=== PATIENT | male | born 1995 | race Caucasian/White ===

== ENCOUNTER 2018-10-19 20:41 | Emergency (ER) | payer MEDICAID ==
[~2018-10-19] VITALS: Ht 172.7 cm; Wt 68.2 kg
[~2018-10-19 20:41] MED LIST: ACET-3068 PO; CYCL-394 PO; IBUP-1984 PO; NO HOME MEDS; PANT-47 PO
[2018-10-19] MEDS ORDERED: TETanus/Pertussis (Acell)/Diphther VAC/PF (Tdap-Adult) 0.5ml syringe IM ONE (20:50)
[2018-10-19] MEDS ORDERED: LIDOcaine 1% w/epiNEPHrine 1:200,000 30ml vial IM ONE (20:50)
[2018-10-19] MEDS ORDERED: LORazepam 1 MG tablet PO ONE ×2 (20:50→23:45)
[2018-10-19 21:08] LABS: BASOPHILS % (AUTO) 0.2 % (0-1); EOSINOPHILS % (AUTO) 0.4 % (0-6); HEMATOCRIT 40.1 % (42.0-52.0); HEMOGLOBIN 13.8 g/dl (14.0-17.9); LYMPHOCYTES # (AUTO) 0.9 X10'3 (1.1-4.8); LYMPHOCYTES % (AUTO) 11.7 % (21-51); MEAN CORPUSCULAR HEMOGLOBIN 32.9 PG (27.0-31.0); MEAN CORPUSCULAR HGB CONC 34.5 g/dL (33.0-36.5); MEAN CORPUSCULAR VOLUME 95.5 FL (78-98); MONOCYTES # (AUTO) 0.6 X10'3 (0-0.9); MONOCYTES % (AUTO) 7.8 % (2-12); NEUTROPHILS # (AUTO) 6.4 X10'3 (1.8-7.7); NEUTROPHILS % (AUTO) 79.9 % (42-75); PLATELET COUNT 232 X10'3 (140-440); RED CELL DISTRIBUTION WIDTH 12.7 % (11.5-14.5)
[2018-10-19 21:22] LABS: ALANINE AMINOTRANSFERASE 30 U/L (12-78); ALBUMIN 4.3 G/DL (3.4-5.0); ALBUMIN/GLOBULIN RATIO 1.3 (1.1-1.5); ALKALINE PHOSPHATASE 90 IU/L (46-116); ANION GAP 8 (8-16); ASPARTATE AMINO TRANSFERASE 17 U/L (10-37); BILIRUBIN,TOTAL 0.5 MG/DL (0.1-1.0); BLOOD UREA NITROGEN 20 MG/DL (7-18); CALCIUM 9.5 MG/DL (8.5-10.1); CHLORIDE 105 MMOL/L (99-107); CREATININE 1.11 MG/DL (0.60-1.10); GLUCOSE 146 MG/DL (70-104); POTASSIUM 3.2 MMOL/L (3.5-5.1); SODIUM 145 MMOL/L (135-145); TOTAL CARBON DIOXIDE 32.1 MMOL/L (24-32); TOTAL PROTEIN 7.7 G/DL (6.4-8.2); eGFR 81 ML/MIN
[2018-10-19 21:30] LABS: ETHANOL < 0.010 GM/DL (0.0-0.010)
[2018-10-19] MEDS ORDERED: bacitracin 15gm ointment TP ONE (21:30)
--- NOTE | 2018-10-19 22:02 | NUR ---
PT MOTHER CALLED DARYL TOSCANO [phone]. MOM SPOKE TO PT. PT REPEATEDLY STATES, PLEASE MOM TAKE ME BACK, I WANT HER BACK, I REALLY WANT HER BACK. IM SORRY ILL CHANGED MY WAYS. ILL STOP DURING EVERYTHING. MOM IS ON HER WAY TO THE HOSPITAL.
--- NOTE | 2018-10-19 23:25 | NUR ---
pt praying at bedside, please lord help me get my life together.
--- NOTE | 2018-10-19 23:41 | NUR ---
PT ANXIOUS AND PACING IN ROOM. REPORTING HE WANTS TO CALL HIS MOM. PT JUST GOT OFF THE PHONE WHIT HER WITHIN THE HR. SHE IS REPORTEDLY WORKING ON GETTING A RIDE HERE TO COME VISIT.
--- NOTE | 2018-10-20 00:08 | NUR ---
maurilio rodriguez updated that pt restless in his room and pacing. he will order another tab of ativan
[2018-10-20] MEDS ORDERED: diphenhydrAMINE 25mg capsule PO ONE (00:10)
[2018-10-20 00:14] LABS: CLARITY,URINE CLEAR (Clear); COLOR,URINE YELLOW (Yellow); GLUCOSE, URINE NEGATIVE (Neg); KETONES,URINE 15 mg/dl (Neg); LEUKOCYTE ESTERASE ,URINE NEGATIVE (Neg); NITRITES, URINE NEGATIVE (Neg); OCCULT BLOOD,URINE NEGATIVE (Neg); PROTEIN,URINE TRACE mg/dl (Neg); UROBILINOGEN,URINE 0.2 E.U/dL (0.2-1.0)
[2018-10-20 00:15] LABS: UA COLLECTION TYPE CLN CATCH MIDSTREAM
[2018-10-20 00:20] LABS: BACTERIA,URINE NONE SEEN /HPF (Neg); MUCUS STRANDS NONE SEEN /LPF (Neg); RBC,URINE NONE SEEN /HPF (0-2); SQUAMOUS EPITHELIAL CELL,UR NONE SEEN /LPF (FEW); WBC,URINE NONE SEEN /HPF (0-4)
[2018-10-20] MEDS ORDERED: potassium Cl oral solution 20 MEQ/15 ML PO ONE (00:25)
[2018-10-20 00:32] LABS: URINE AMPHETAMINE SCREEN POSITIVE (Neg); URINE BARBITUATE SCREEN NEGATIVE (Neg); URINE BENZODIAZEPINES SCREEN NEGATIVE (Neg); URINE CANNABINOID SCREEN POSITIVE (Neg); URINE COCAINE SCREEN NEGATIVE (Neg); URINE METHADONE SCREEN NEGATIVE (Neg); URINE OPIATE SCREEN NEGATIVE (Neg); URINE PHENCYCLIDINE SCREEN NEGATIVE (Neg)
--- NOTE | 2018-10-20 00:46 | NUR ---
Pt given ativan and benedryl tablets and took them with no problem. Pt eating snacks. He reports he is waiting for his mother to come and get him and is under the impression that he is going home tonight with her. Pt denies any hitstory of MH and denies any current perscribed medications. States "yes" to hearing voices. Asked what he is hearing and he reports "its personal". I called Pt's mother, Cassy, and updated her that he is on a 72 hr hold. She was unaware that he could not come home tonight and reports that she is in a taxi coming to get him. I advised that she wait and come to be with him around 8 am and then she could be here for his eval with Mental Health. She is agreeable to this. We spoke with the Pt together on a phone in the room and updated him of the plan of care. He is more restless now, but continues to talk with him mother. She reports he can call her throughout the night if needed. Aniket Ashby and fuel efficient automobile designer, Brock, aware of situation. Pt to be moved to bed 15 for closer observation.
[2018-10-20] MEDS ORDERED: haloperidol lactate 5mg/ml inj IM ONE (00:50)
--- NOTE | 2018-10-20 01:14 | NUR ---
Pt given potassium 40 meq elixier for k of 3.2 and haldol 5 mg im. Pt willingly took all meds with no issue. Pt continues to repeat "so can i go home now?". Reiterated that he will be seen in the morning by Mental Health for further plan of care. Pt moved to bed 15 close to dry pan charger. Pt sitting up at edge of bed and requests light to be on and declines a blanket
--- NOTE | 2018-10-20 02:24 | NUR ---
pt sleeping, lying on his right side with blankets covering to his chest. RR 14 and unlabored. Sitter at doorway as Pt 1:1. Mother just called to check in and updated. She reports she will try to get here in the am.
--- NOTE | 2018-10-20 04:14 | NUR ---
pt remains asleep. RR 14 and unlabored. 1:1 sitter at doorway. mother just called to check in.
--- NOTE | 2018-10-20 04:55 | NUR ---
pt awakened to take vs. vss. pt back to sleep immediately after.
--- NOTE | 2018-10-20 06:15 | NUR ---
Assumed care of pt. Sleeping at this time, RR 15 non-labored.
--- NOTE | 2018-10-20 07:15 | NUR ---
Pt resting comfortably, and asleep on L side. Will continue to monitor.
--- NOTE | 2018-10-20 08:30 | NUR ---
Pt sleeping on R side. RR 14 and non labored. Will continue to monitor.
--- NOTE | 2018-10-20 09:30 | NUR ---
Pt sleeping on L side. RR 14 non-labored. No needs at this time. Will continue to monitor.
--- NOTE | 2018-10-20 10:30 | NUR ---
Mother and friend now at bedside. Updated family with pt permission. Per pt, he does not want any visitors or to speak with anyone other than his mother.
--- NOTE | 2018-10-20 12:00 | NUR ---
Mother at bedside. Pt asleep in bed, lying on his back. RR 15.
--- NOTE | 2018-10-20 13:00 | NUR ---
Mother at bedside. Pt asleep in bed, lying on his L side. RR 16.
--- NOTE | 2018-10-20 14:15 | NUR ---
Mother at bedside. Pt asleep in bed, lying on his R side. RR 14.
--- NOTE | 2018-10-20 15:12 | NUR ---
Mother at bedside. Pt asleep in bed, lying on his back. RR 15 and non labored
--- NOTE | 2018-10-20 15:50 | NUR ---
Received to overflow room 26. Oriented pt and mother to room and unit policies. Mother Promise requesting that we do not give out any information to anyone.
[2018-10-20] MEDS ORDERED: NO HOME MEDS (16:20)
[2018-10-20 17:22] VITALS: BP 109/74
== END 2018-10-20 17:25 | disposition home or self-care (01) ==
LOC: ER 20:42
DX: S61.511A Laceration without foreign body of right wrist, initial encounter (principal); F98.8 Other specified behavioral and emotional disorders with onset usually occurring in childhood and adolescence; E87.6 Hypokalemia; J45.909 Unspecified asthma, uncomplicated; K21.9 Gastro-esophageal reflux disease without esophagitis; F41.9 Anxiety disorder, unspecified; F15.90 Other stimulant use, unspecified, uncomplicated; Z98.890 Other specified postprocedural states; Z79.899 Other long term (current) drug therapy; X78.1XXA Intentional self-harm by knife, initial encounter; Y93.89 Activity, other specified; Y92.89 Other specified places as the place of occurrence of the external cause; Y99.8 Other external cause status
CPT/HCPCS: 12002; 36415; 80053; 80305; 80320; 81001; 84443; 85025; 90471; 90715; 96372; 99284; J1630; J3490; Q0163

== ENCOUNTER 2019-05-26 14:02 | Emergency (ER) | payer MEDICAID ==
[~2019-05-26] VITALS: Ht 177.8 cm; Wt 72.3 kg
[~2019-05-26 14:02] MED LIST changes: -ACET-3068 PO; -CYCL-394 PO; -IBUP-1984 PO; -PANT-47 PO
[2019-05-26 14:31] VITALS: BP 124/79
== END 2019-05-26 15:15 | disposition left against medical advice (07) ==
LOC: ER 14:03
DX: R22.0 Localized swelling, mass and lump, head (principal); Z53.21 Procedure and treatment not carried out due to patient leaving prior to being seen by health care provider

== ENCOUNTER 2021-10-15 17:51 | Emergency (ER) | payer MEDICAID ==
[~2021-10-15] VITALS: Ht 175.3 cm; Wt 70.5 kg
[2021-10-15] MEDS ORDERED: HYDROcodone/acetaminophen 10/325mg tab PO STA (17:56)
[2021-10-15] MEDS ORDERED: ketamine 50 mg/ml 10ml vial IV ONE (18:30)
[2021-10-15] MEDS ORDERED: ondansetron/PF 4mg/2ml inj IV ONE (18:30)
[2021-10-15] MEDS ORDERED: morphine 4 MG/ML inj SYRINge IV ONE (18:30)
--- NOTE | 2021-10-15 19:10 | NUR ---
XRAY AT BEDSIDE FOLLOWING CLOSED REDUCTION OF LEFT SHOULDER
[2021-10-15] MEDS ORDERED: HYDR-3972 PO (19:22)
[2021-10-15] MEDS ORDERED: HYDROcodone/acetaminophen 10/325mg tab PO ONE (19:25)
[2021-10-15 19:36] VITALS: BP 127/95
--- NOTE | 2021-10-15 19:50 | NUR ---
RN GAVE PT WATER. PT TOLERATED WATER WITH NO NAUSEA.
--- NOTE | 2021-10-15 19:57 | NUR ---
PT TOLERATED WALKING AND SITTING UP WITH NO COMPLICATIONS POST MODERATE SEDATION
== END 2021-10-15 20:02 | disposition home or self-care (01) ==
LOC: ER 17:52
DX: S43.085A Other dislocation of left shoulder joint, initial encounter (principal); J45.909 Unspecified asthma, uncomplicated; K21.9 Gastro-esophageal reflux disease without esophagitis; F41.9 Anxiety disorder, unspecified; F15.90 Other stimulant use, unspecified, uncomplicated; Z98.890 Other specified postprocedural states; Z79.899 Other long term (current) drug therapy; W18.39XA Other fall on same level, initial encounter; Y93.44 Activity, trampolining; Y92.89 Other specified places as the place of occurrence of the external cause; Y99.8 Other external cause status
CPT/HCPCS: 23650; 73030; 96374; 96375; 99152; 99285; J2270; J2405; J3490

== ENCOUNTER 2023-09-16 16:08 | Emergency (ER) | payer MEDICAID ==
[~2023-09-16] VITALS: Ht 177.8 cm; Wt 74.5 kg
[2023-09-16 16:16] VITALS: BP 132/98; PULSE 87; RESP 18; TEMP 97.8; O2SAT 98
[2023-09-16] MEDS ORDERED: ZIPR80CA2 PO (16:23)
[2023-09-16] MEDS: ziprasidone 20mg capsule PO SCH (16:45)
== END 2023-09-16 16:48 | disposition home or self-care (01) ==
LOC: ER 16:09
DX: R41.0 Disorientation, unspecified (principal); R45.851 Suicidal ideations; J45.909 Unspecified asthma, uncomplicated; K21.9 Gastro-esophageal reflux disease without esophagitis; F15.90 Other stimulant use, unspecified, uncomplicated
CPT/HCPCS: 99283

== ENCOUNTER 2025-01-27 07:31 | Emergency (ER) | payer MEDICARE, MEDICAID ==
[~2025-01-27] VITALS: Ht 177.8 cm; Wt 80.0 kg
[~2025-01-27 07:31] MED LIST changes: +ZIPR80CA2 PO
[2025-01-27 07:34] VITALS: BP 127/76; PULSE 77; RESP 16; O2SAT 99
--- NOTE | 2025-01-27 07:41 | Physician Documentation ---
History of Present Illness ~ Chief Complaint: Eye Pain Stated Complaint: EYE PAIN Time Seen by MD: 07:36 Primary Medical Doctor: Wolfgang [facility] PCP HPI This is a 29-year-old gentleman who presents for evaluation of swollen irritated area on his upper eyelid of the left eyelid he noticed this morning. No obvious trigger provocation. No trauma. No vision changes. Did not attempt to treat it. Denies any other concerns. Medication Reconciliation Allergies: Coded Allergies: No Known Allergies (Unverified , 02/05/12) Scheduled Ziprasidone Hcl (Geodon), 1 CAP PO DAILY Miscellaneous Medications Home Med List (No Home Medications), (Reported) Past Medical History Past Medical History: Asthma, GERD, Anxiety Past Surgical History: orthopedic surgeries Alcohol Use: None Drug Use: methamphetamine Lives with: Mother Lives In: Home Occupation: disabled Review of Systems ROS 10 point review of systems was performed and unless noted above in HPI is negative for acute process/complaint. Physical Exam Vital Signs: Heart Rate: 77, Respiratory Rate: 16, BP: 127/76, Pulse Oximetry: 99, Weight: 80.000 Physical Exam Physical examination: GENERAL: Awake, alert, oriented, GCS 15, no apparent distress, non-toxic appearing, answers questions, follows commands appropriately. HEENT: Atraumatic, normocephalic, pupils equal, extraocular muscles intact Active gross movements, sclerae anicteric, mucus membranes moist, no stridor. NECK: Midline, no JVD CARDIOVASCULAR: Good skin perfusion without evidence of pallor, mottling. PULMONARY: Nonlabored, symmetric chest rise, no audible wheezing, no accessory muscle use, no respiratory distress, speaking in full sentences. GASTROINTESTINAL: Not distended. NEUROLOGIC: Lucid with normal mental status. Normal facial symmetry. Moves all extremities symmetrically and with purpose. No truncal ataxia. Speech is fluid without evidence of dysarthria or aphasia, no focal deficits appreciated. EXTREMITIES: Acute deformities Skin: warm, dry PSYCHIATRIC: Normal affect, normal insight, normal concentration. Focused exam: Left upper eyelid has a small area of induration, erythema, consistent with a early stye. No purulent discharge. Anterior chamber is not shallow. No hypopyon or hyphema. No evidence of cellulitis/preseptal cellulitis. No pain with a extraocular range of motion. Progress Results/Orders Results/Orders Vital Signs 01/27/25 07:34 Pulse 77 Resp 16 B/P (MAP) 127/76 Pulse Ox 99 Medical Decision Making Findings Facility Status: ED Holds, E process The plan was discussed with the patient, who demonstrates clear understanding of the plan and is in agreement with the plan unless otherwise noted in the chart. All questions have been answered, all concerns were addressed unless otherwise documented. I was available throughout their ED stay for frequent reassessment and questions. Differential Diagnoses (considered and possible or likely): [Stye, chalazion, no evidence of traumatic injury, no evidence of preseptal cellulitis or orbital cellulitis at this time.] ??Differential Diagnoses (considered and unlikely, not requiring evaluation currently): [Unlikely glaucoma] MDM Data Please see [facility] for the following: Independent Historians and external Records Review. Historian: [Patient] Independent Historians: ?[Record review] Medication Management: [Reviewed medication list] Social History and determinants: [Reviewed] Please see the body of the note for the following: Any independent interpretations of ECG, imaging studies. All vitals signs/haemodynamics, ordered tests were independently reviewed and i nterpreted by myself. Nursing triage complaint and vitals reviewed, additional nursing notes were reviewed as available and I agree unless otherwise noted or documented in contradiction in the chart Vital Signs: Independently reviewed Labs: Independently interpreted Imaging: Independently interpreted Old Medical Records: Independently reviewed, see [facility] for relevant summary and information Pulse Oximetry: [98%] interpreted as [normal on room air] by me Additionally notably showing: [Hemodynamically stable] Tests considered but not ordered include: [Hematologic workup and imaging has been considered but does not appear to be necessary given clinical nature of diagnosis] Social Determinants of Health Impact: Patient was evaluated in [facility] [place] to healthcare due to below par ratio of patient to medical providers. [] Comorbid Conditions Impacting Present Evaluation and Care/Treatment: [None reported by the patient] Management Discussions with other Healthcare Providers: [] Treatment and Disposition Medication Management (Given or considered): [None needed]. See EMR for details Consideration for Hospitalization/Escalation/Deescalation of Care: Admission for observation has been considered, [however the patient is able to tolerate p.o., their symptoms are controlled, they are able to rely on oral medications, and their chief complaint/diagnosis can be managed on outpatient basis.] ?ED Course:?[No clinical deterioration. Patient education was conducted.] ?Shared decision making:?[Patient is hemodynamically stable for discharge home with follow with their primary care provider. [ ] Specific and cautious return precautions provided and discussed with full understanding. Any incidental findings were also discussed and follow up recommendations given. [] All questions answered. Patient/family were able to verbalize back return precautions. Patient/family agree to plan. Copies of imaging and laboratory studies were provided.] Code status:?FULL Please see the full Electronic Medical Record for full details of nursing documentation, medications list, other records of complete past medical history and conditions, vital signs, laboratory studies, and any radiologic study interpretations by radiologists. Portions of this note were completed using [email or web address] dictation software and as a result there may exist minor errors in spelling. I have reviewed elements of past family and social history and agree as included in note. Departure Disposition: 01 HOME / SELF CARE / HOMELESS Impression: Primary Impression: Stye Condition: Stable Discharge Instructions: Sty Referrals: NO PRIMARY CARE PROVIDER (PCP) Education Educated: Patient Educated regarding: diagnosis, treatment, prognosis, need for follow up Signature Scribe Signature: No scribe Attestation: This note accurately reflects clinical decisions, work performed by myself, Parmjit Harper, PARMJIT ZAVALETA DO Jan 27, 2025 07:41
== END 2025-01-27 07:46 | disposition home or self-care (01) ==
LOC: ER 07:32
DX: H00.014 Hordeolum externum left upper eyelid (principal); J45.909 Unspecified asthma, uncomplicated; F15.90 Other stimulant use, unspecified, uncomplicated
CPT/HCPCS: 99282

== ENCOUNTER 2025-04-18 07:52 | Emergency (ER) | payer MEDICARE, MEDICAID ==
[~2025-04-18] VITALS: Ht 180.3 cm; Wt 83.8 kg
[2025-04-18 07:55] VITALS: TEMP 97.5
[2025-04-18] MEDS ORDERED: ALBU8HFA INH (09:02)
--- NOTE | 2025-04-18 09:02 | Physician Documentation ---
History of Present Illness ~ Chief Complaint: Cold, cough & congestion Stated Complaint: COLD SYMPTOMS Time Seen by MD: 08:50 Primary Medical Doctor: Wolfgang HOFFMANN PCP Mode of Arrival: POV, Ambulatory HPI 29-year-old male presents to the ED with a complaint of shortness a breath x1 day. States he has cold cough and congestion symptoms. Says it he thinks that he has asthma but does not take anything for does not have any inhalers. Denies any fevers. Medication Reconciliation Allergies: Coded Allergies: No Known Allergies (Unverified , 04/18/25) Scheduled Ziprasidone Hcl (Geodon), 1 CAP PO DAILY Miscellaneous Medications Home Med List (No Home Medications), (Reported) Past Medical History Past Medical History: Asthma, GERD, Anxiety Past Surgical History: orthopedic surgeries Alcohol Use: None Drug Use: methamphetamine Lives with: Mother Lives In: Home Occupation: disabled Review of Systems All Other Systems at this time: Reviewed and Negative ROS As stated above in the HPI, otherwise all systems are reviewed and negative. Physical Exam Vital Signs: Temperature: 97.5, Source: Temporal, Heart Rate: 76, Respiratory Rate: 16, BP: 127/91, Pulse Oximetry: 97, Weight: 83.800 Oxygen Flow Rate: 0 Physical Exam General: Alert, no apparent distress. Respiratory: Lungs clear, no respiratory distress. Chest: No accessory muscle use. Cardiovascular: Regular rate and rhythm, no murmurs. . Neurologic: Oriented x4. Psychiatric: Normal mood and affect. Skin: Normal color, warm and dry. No edema, no ecchymosis. Progress Results/Orders Results/Orders Vital Signs 04/18/25 04/18/25 04/18/25 07:55 08:32 08:33 Temp 97.5 Pulse 82 76 Resp 16 16 B/P (MAP) 142/88 127/91 (103) Pulse Ox 99 97 O2 Flow Rate 0 0 Medical Decision Making Additional information obtaine: old records Findings The patient does not present with any acute distress. He has no audible wheezing. Does not present as toxic appearing. At this time I feel it is prudent to give him a breathing treatment and discharge with a an albuterol inhaler for any further exacerbation Differential Dx:Considerations: Include: Allergic rhinitis, Influenza, Otitis media, Peritonsillar abscess, Pharyngitis-Diphtheria, Pharyngitis-Streptoccal, Pharyngitis-Viral, Pneumonia, Pnuemonitis, Sinusitis, URI, Other Departure Disposition: 01 HOME / SELF CARE / HOMELESS Impression: Primary Impression: Acute respiratory infection Additional Impression: Acute bronchitis Condition: Stable Discharge Instructions: Upper Respiratory Infection, Adult, Cough, Adult Referrals: NO PRIMARY CARE PROVIDER (PCP) Prescriptions albuterol inhaler (Pro-Air Inhaler) 8.5 Gm Inhaler 2 PUFFS INH Q4HPRN PRN for wheezing for 30 Days, #18 GM Prov: ENRIQUE CABRERA NP 04/18/25 Education Educated: Patient Educated regarding: diagnosis Signature Scribe Signature: e Attestation: Scribed for Enrique Cabrera Paper Mill Superintendent by Enrique Cabrera - ESTELITA . 04/18/25 09:02 ENRIQUE CABRERA NP Apr 18, 2025 09:02
[2025-04-18] MEDS: ipratropium/albuterol 3ml nebule NEB ONE (09:14)
[2025-04-18 09:16] VITALS: PULSE 77; RESP 18; O2SAT 98
[2025-04-18 09:21] VITALS: PULSE 82; RESP 14; O2SAT 99
[2025-04-18 09:27] VITALS: BP 122/93; PULSE 80; RESP 16; O2SAT 96
== END 2025-04-18 09:31 | disposition home or self-care (01) ==
LOC: ER 07:53
DX: J22 Unspecified acute lower respiratory infection (principal); J20.9 Acute bronchitis, unspecified; K21.9 Gastro-esophageal reflux disease without esophagitis; F41.9 Anxiety disorder, unspecified; F15.90 Other stimulant use, unspecified, uncomplicated; Z98.890 Other specified postprocedural states
CPT/HCPCS: 94640; 94760; 99283